=== PATIENT | female | born 1955 | race American Indian/Alaskan Native ===

== ENCOUNTER 2017-01-06 11:20 | Day surgery (SDC) | payer BC ==
[2017-01-06] MEDS ORDERED: IOPIDINE ONE (11:48)
[2017-01-06] MEDS ORDERED: AK-Dilate ONE ×2 (11:49→12:11)
[2017-01-06] MEDS ORDERED: MYDRIACYL ONE (11:50)
[2017-01-06] MEDS ORDERED: NEOFRIN ONE (12:02)
[2017-01-06] MEDS ORDERED: NEOFRIN OS ONE (12:11)
[2017-01-06] MEDS ORDERED: IOPIDINE OS ONE (12:11)
[2017-01-06] MEDS ORDERED: MYDRIACYL OS ONE (12:11)
[2017-01-06 12:20] VITALS: BP 120/70
== END 2017-01-06 12:46 | disposition home or self-care (01) ==
LOC: OR 11:20
PROVIDERS: ATTEND Specialist
DX: E11.36 Type 2 diabetes mellitus with diabetic cataract (principal); H26.492 Other secondary cataract, left eye; I10 Essential (primary) hypertension; K21.9 Gastro-esophageal reflux disease without esophagitis; M19.071 Primary osteoarthritis, right ankle and foot; Z87.891 Personal history of nicotine dependence
CPT/HCPCS: 82962

== ENCOUNTER 2018-11-28 08:56 | Outpatient (CLI) | payer BC ==
[2018-11-28 09:35] LABS: Alanine Aminotransferase 12 units/L (7-56); Albumin 4.4 g/dL (3.9-5); BUN/Creatinine Ratio 18; Blood Urea Nitrogen 11 mg/dL (7-17); Calcium 9.6 mg/dL (8.4-10.2); Hemolysis Index 12
== END 2018-11-28 08:57 | disposition home or self-care (01) ==
LOC: LAB 08:56
PROVIDERS: ATTEND Clinical Nurse Specialist Adult Health
DX: E11.9 Type 2 diabetes mellitus without complications (principal); I10 Essential (primary) hypertension; K21.9 Gastro-esophageal reflux disease without esophagitis; M19.90 Unspecified osteoarthritis, unspecified site; Z90.49 Acquired absence of other specified parts of digestive tract
CPT/HCPCS: 36415; 80053; 83036

== ENCOUNTER 2018-12-20 10:04 | Outpatient (CLI) | payer BC ==
[2018-12-20 10:29] LABS: Basophils % (Auto) 0.6 % (0.0-1.8); Eosinophils # (Auto) 0.1 K/mm3 (0.0-0.4); Eosinophils % (Auto) 2.3 % (0.0-4.3); Hematocrit 38.9 % (30.3-42.9); Hemoglobin 12.8 gm/dl (10.1-14.3); Lymphocytes # (Auto) 1.3 K/mm3 (1.2-5.4); Lymphocytes % (Auto) 28.1 % (13.4-35.0); Mean Corpuscular HGB Conc 33 % (30-34); Mean Corpuscular Volume 85 fl (79-97); Monocytes # (Auto) 0.3 K/mm3 (0.0-0.8); Monocytes % (Auto) 7.1 % (0.0-7.3); Platelet Count 281 K/mm3 (140-440); Red Blood Count 4.56 M/mm3 (3.65-5.03); Red Cell Distribution Width 15.2 % (13.2-15.2)
== END 2018-12-20 10:05 | disposition home or self-care (01) ==
LOC: LAB 10:04
PROVIDERS: ATTEND Family Medicine
DX: J30.9 Allergic rhinitis, unspecified (principal); I10 Essential (primary) hypertension; K21.9 Gastro-esophageal reflux disease without esophagitis; M19.90 Unspecified osteoarthritis, unspecified site; Z90.710 Acquired absence of both cervix and uterus
CPT/HCPCS: 36415; 82785; 85025